=== PATIENT | female | born 1970 | race Caucasian/White ===

== ENCOUNTER 2021-02-22 13:51 | Emergency (ER) | payer SELFPAY ==
[~2021-02-22] VITALS: Ht 165.1 cm; Wt 75.0 kg
--- NOTE | 2021-02-22 14:15 | PHYS DOC ---
General Adult EDM: Chief Complaint: WOUND CHECK HPI: HPI: Patient is a 51 year old female patient who presents to the ED today requesting a referral to the wound clinic for skin graft to her right lower extremity, patient states she has a chronic wound to the right lower extremity for two years. She states she was supposed to have a skin graft to the area but when Covid hit everything was cancelled. She states she was also homeless after breaking up with the but currently has a stable living environment. She states right now she is ready to have the skin graft. Denies any fever or drainage from the wound. She reports finishing cephalexin for UTI 1-1/2 weeks ago. Review of Systems: Review of Systems: Constitutional: Denies fever or chills. [] Musculoskeletal: Denies back pain or joint pain. [] Integument: Reports chronic wound to the right lower extremity and requesting a skin graft Neurologic: Denies headache, focal weakness or sensory changes. [] Psychiatric: Denies depression or anxiety. [] Heart Score: C/O Chest Pain: N/A Risk Factors: Risk Factors: DM, Current or recent (<one month) smoker, HTN, HLP, family history of CAD, obesity. Risk Scores: Score 0 - 3: 2.5% MACE over next 6 weeks - Discharge Home Score 4 - 6: 20.3% MACE over next 6 weeks - Admit for Clinical Observation Score 7 - 10: 72.7% MACE over next 6 weeks - Early Invasive Strategies Physical Exam: PE: Constitutional: Well developed, well nourished, no acute distress, non-toxic appearance. [] Skin: The back of the right lower extremity with an open nondraining wound roughly 8 x 4 cm. No signs of infection. +2 right pedal pulse. Range of motion intact to the right lower extremity. Back: No tenderness, no CVA tenderness. [] Extremities: No tenderness, no cyanosis, no clubbing, ROM intact, no edema. [] Neurologic: Alert and oriented X 3, normal motor function, normal sensory function, no focal deficits noted. [] Psychologic: Affect normal, judgement normal, mood normal. [] EKG: EKG: [] Radiology/Procedures: Radiology/Procedures: [] Course & Med Decision Making: Course & Med Decision Making Pertinent Labs and Imaging studies reviewed. (See chart for details) This is a 51-year-old female patient presenting to the ED today with a chronic wound to the right lower extremity for 2 years and requesting referral to the wound clinic for skin graft. Patient was scheduled for skin graft but it was cancelled due to covid. Tetanus is up-to-date. Provided referral to the wound clinic. [place] Disclaimer: Dragleandro Disclaimer: This electronic medical record was generated, in whole or in part, using a voice recognition dictation system. Departure Departure Impression: Primary Impression: Chronic wound of extremity Disposition: 01 HOME / SELF CARE / HOMELESS Condition: STABLE Referrals: MALLORIE VARGAS MD Call and get an appointment to be seen Patient Instructions: Wound Check Additional Instructions: You were evaluated in the emergency room, you were referred to the wound clinic for further care. Please call them and set up a follow-up appointment CALE SILVA APRN Feb 22, 2021 14:15
[2021-02-22 14:45] VITALS: BP 133/88
== END 2021-02-22 14:50 | disposition home or self-care (01) ==
LOC: ER 13:51
DX: S81.801A Unspecified open wound, right lower leg, initial encounter (principal); X58.XXXA Exposure to other specified factors, initial encounter; Y93.89 Activity, other specified; Y92.89 Other specified places as the place of occurrence of the external cause; Y99.8 Other external cause status
CPT/HCPCS: 99281